=== PATIENT | female | born 1980 | race Two or more races ===

== ENCOUNTER 2016-11-30 18:39 | Emergency (ER) | payer OTHER ==
[~2016-11-30] VITALS: Ht 170.2 cm; Wt 54.4 kg
[~2016-11-30 18:39] MED LIST: ZOFRAN ODT4 MG ORAL
[2016-11-30] MEDS ORDERED: BUPROPION XL300 MG ORAL (18:57)
[2016-11-30] MEDS ORDERED: PROPRANOLOL HCL10 MG ORAL (18:57)
[2016-11-30] MEDS ORDERED: Ketorolac 60mg Inj IM ONE (19:15)
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
[2016-11-30 19:18] VITALS: BP 110/60
[2016-11-30] MEDS ORDERED: IBUPROFEN600 MG ORAL (20:04)
[2016-11-30] MEDS ORDERED: CYCLOBENZAPRINE10 MG ORAL (20:04)
[2016-11-30 20:23] VITALS: BP 120/62
== END 2016-11-30 20:23 | disposition home or self-care (01) ==
LOC: EMR 19:25
DX: M62.838 Other muscle spasm (principal); T14.8 Other injury of unspecified body region; V43.52XA Car driver injured in collision with other type car in traffic accident, initial encounter; Y92.410 Unspecified street and highway as the place of occurrence of the external cause; Y99.8 Other external cause status
CPT/HCPCS: 96372; 99283

== ENCOUNTER 2018-01-22 16:32 | Emergency (ER) | payer OTHER ==
[~2018-01-22] VITALS: Ht 170.2 cm; Wt 54.4 kg
[~2018-01-22 16:32] MED LIST changes: +BUPROPION XL300 MG ORAL; +CYCLOBENZAPRINE10 MG ORAL; +IBUPROFEN600 MG ORAL; +PROPRANOLOL HCL10 MG ORAL
[2018-01-22] MEDS ORDERED: DEPAKOTE250 MG PO (16:51)
[2018-01-22] MEDS ORDERED: BUPROPION XL300 MG ORAL (16:51)
[2018-01-22] MEDS ORDERED: PROPRANOLOL HCL10 MG ORAL (16:51)
[2018-01-22] MEDS ORDERED: Morphine Sulfate 4mg/ml Inj IVP ONE (17:15)
[2018-01-22] MEDS ORDERED: DiphenhydrAMINE 50mg/ml Inj IVP ONE (17:15)
[2018-01-22] MEDS ORDERED: Sodium Chloride 500ML 500 ML IV ONE (17:15)
[2018-01-22 17:58] VITALS: BP 119/62
--- NOTE | 2018-01-22 18:06 | Emergency Room Report ---
History of Present Illness General Chief Complaint: Vomiting Source: Patient Present Illness HPI 37-year-old female presents ED for evaluation. Patient states since this morning she's been experiencing congestion, cough, ear aches, bodyaches. Afebrile. Cough is dry. Patient also complaining of migraine. History of migraines. Sharp, 06/04, nonradiating. Denies photophobia. Denies neck pain. Denies any nausea or vomiting. No other aggravating relieving factors. Denies any other associated symptoms Allergies: Coded Allergies: No Known Allergies (Unverified , 09/09/16) Patient History Past Medical History: migraines Past Surgical History: none Pertinent Family History: none Social History: Denies: smoking, alcohol use, drug use Last Menstrual Period: 01/05/18 Now: No Immunizations: UTD Reviewed Nursing Documentation: PMH: Agreed, PSxH: Agreed Nursing Documentation-PMH Hx Neurological Problems: Yes - Migraine Physical Exam Vital Signs Date Time Temp Pulse Resp B/P (MAP) Pulse Ox O2 Delivery O2 Flow Rate FiO2 01/22/18 16:45 99.7 101 17 116/59 99 Room Air 99.7 Sp02 EP Interpretation: reviewed, normal General Appearance: no apparent distress, alert, GCS 15, non-toxic Head: normocephalic, atraumatic Eyes: bilateral eye normal inspection, bilateral eye PERRL ENT: hearing grossly normal, normal pharynx, no angioedema, normal voice Neck: full range of motion, supple, no meningismus, supple/symm/no masses Respiratory: chest non-tender, lungs clear, normal breath sounds, speaking full sentences Cardiovascular #1: regular rate, rhythm, no edema Cardiovascular #2: 2+ carotid (R), 2+ carotid (L), 2+ radial (R), 2+ radial (L) , 2+ dorsalis pedis (R), 2+ dorsalis pedis (L) Gastrointestinal: normal bowel sounds, non tender, soft, non-distended, no guarding, no rebound Rectal: deferred Genitourinary: normal inspection, no CVA tenderness Musculoskeletal: back normal, gait/station normal, normal range of motion, non- tender Neurologic: alert, oriented x3, responsive, motor strength/tone normal, sensory intact, speech normal Psychiatric: judgement/insight normal, memory normal, mood/affect normal, no suicidal/homicidal ideation Reflexes: 3+ bicep (R), 3+ bicep (L), 3+ tricep (R), 3+ tricep (L), 3+ knee (R) , 3+ knee (L) Skin: normal color, no rash, warm/dry, well hydrated Lymphatic: no adenopathy Medical Decision Making Diagnostic Impression: Primary Impression: Upper respiratory infection Qualified Codes: J06.9 - Acute upper respiratory infection, unspecified Additional Impression: Migraine Qualified Codes: G43.909 - Migraine, unspecified, not intractable, without status migrainosus ER Course Hospital Course 37-year-old female presents ED complaining of headache. History of migraine. Also complaining of runny nose, cough, congestion Differential diagnoses include: tension headache, migraine, URI, pharyngitis Clinical course Patient placed on stretcher. After initial history, physical exam reveals female in no acute distress. No nuchal rigidity. Good light reflex in bilateral TM. Pharynx unremarkable. Lungs clear Likely URI however triggering migraine I ordered IVFs, compazine, benedryl, morphine Upon reassessment patient states pain has improved. Patient feels better wishes to go home. Given the lack of fever, nuchal rigidity or neurological findings my suspicion for intracranial pathology is low patient be safely discharged to home. i. I feel this is a highly complex case requiring extensive working including EKG/Rhythm strip, Xray/CT/US, Blood/urine lab work, repeat exams while in ED, and administration of strong opiates/narcotics for pain control, admission to hospital or close patient follow up. Diagnosis - URI, migraine stable and discharged to home. f/up with PMD. return to ED if symptoms recur/ worsen. Last Vital Signs Date Time Temp Pulse Resp B/P (MAP) Pulse Ox O2 Delivery O2 Flow Rate FiO2 01/22/18 17:58 99.7 17 119/62 99 Room Air 211.5 01/22/18 16:45 101 Status: improved Disposition: HOME, SELF-CARE Condition: Stable Patient Instructions: Upper Respiratory Infection, Adult, [id number] DUSTIN HYDE M.D. Jan 22, 2018 18:06
== END 2018-01-22 18:00 | disposition home or self-care (01) ==
LOC: EMR 17:10
DX: J06.9 Acute upper respiratory infection, unspecified (principal); G43.909 Migraine, unspecified, not intractable, without status migrainosus
CPT/HCPCS: 96361; 96374; 96375; 99284; J0780; J1200; J2270; J7040

== ENCOUNTER 2018-09-03 16:09 | Emergency (ER) | payer OTHER ==
[~2018-09-03] VITALS: Ht 170.2 cm; Wt 52.2 kg
[~2018-09-03 16:09] MED LIST changes: +DEPAKOTE250 MG PO
[2018-09-03 16:41] VITALS: BP 106/60
[2018-09-03] MEDS ORDERED: Ketorolac 30mg Inj IM ONE (17:00)
[2018-09-03] MEDS ORDERED: DiphenhydrAMINE 25mg/10ml Elixir ORAL ONE (17:00)
[2018-09-03] MEDS ORDERED: Metoclopramide 10mg/2ml Inj IM ONE (17:00)
--- NOTE | 2018-09-03 17:06 | Emergency Room Report ---
History of Present Illness General Chief Complaint: Headache Source: Patient Present Illness HPI 38-year-old female patient presents ER complaining of migraine 1 day. Patient reports that headache began this morning with vomiting. Reports history of similar symptoms in the past, states that normal has migraines similar to this. Reports has been seen by a neurologist and been treated by her primary care provider. Reports mild second History this time. Denies recent injury or trauma. Reports photophobia. Denies vision loss. Denies phonophobia. Denies vertigo. Denies fever, chest pain, shortness of breath. Reports up to date on vaccinations. Denies blood in vomit.denies . Denies dysuria, hematuria. reports pain is more right-sided however reports sinus sinus pain during this time as well. Reports congestion and runny nose during this time. Denies cough. patient reports previously took Imitrex but would have palpitations after taking medication so she no longer takes medication. Allergies: Coded Allergies: No Known Allergies (Unverified , 09/09/16) Patient History Past Medical History: see triage record Last Menstrual Period: on period Reviewed Nursing Documentation: PMH: Agreed; PSxH: Agreed Nursing Documentation-PMH Past Medical History: No History, Except For History Of Psychiatric Problem: Yes - Depression Hx Neurological Problems: Yes - Migraine Review of Systems All Other Systems: negative except mentioned in HPI Physical Exam Vital Signs Date Time Temp Pulse Resp B/P (MAP) Pulse Ox O2 Delivery O2 Flow Rate FiO2 09/03/18 16:19 98.5 93 16 106/60 94 Room Air 98.4 Sp02 EP Interpretation: reviewed, normal General Appearance: well appearing, no apparent distress, alert, GCS 15, non- toxic Head: normocephalic, atraumatic, other - bilateral frontal and maxillary sinus tenderness Eyes: bilateral eye normal inspection, bilateral eye PERRL, bilateral eye EOMI ENT: hearing grossly normal, normal pharynx, no angioedema, normal voice, TMs + canals normal, uvula midline, moist mucus membranes Neck: full range of motion, no bony tend Respiratory: lungs clear, normal breath sounds, no rhonchi, no respiratory distress, no accessory muscle use, no wheezing, speaking full sentences Cardiovascular #1: regular rate, rhythm, no edema Gastrointestinal: non tender, soft, no mass, non-distended, no guarding, no rebound Musculoskeletal: back normal, digits/nails normal, gait/station normal, normal range of motion, non-tender Neurologic: alert, oriented x3, responsive, security vehicle patrol officer III-XII nml as tested, motor strength/tone normal, SLR negative, sensory intact, cerebellar normal, normal gait, speech normal, other - negative Kernig, negative Brudzinski Psychiatric: mood/affect normal Skin: no rash Lymphatic: no adenopathy Medical Decision Making PA Attestation Dr. Bryant is my supervising Physician whom patient management has been discussed with. Diagnostic Impression: Primary Impression: Migraine Additional Impression: Sinusitis ER Course Pt presents to ED c/o headache. DDX considered but are not limited to migraine, cluster MALDONADO, tension MALDONADO, meningitis, ICH, meningitis. negative Kernig, negative Brudzinski, patient afebrile, low suspicion for meningitis. VITAL SIGNS are WNL, patient is afebrile. ER COURSE: provided patient with Reglan,, Benadryl, Toradol and Zofran. History migraine, denies worse headache of life, nontoxic appearing, no vision loss, symptoms consistent with previous migraines, cranial nerves intact as tested, no focal neuro deficits. Offered CT head of patient, discussed with the patient need for CT head, patient declined. Advised to f/u outpatient with PCP and neurologist for further testing and treatment. Will provide patient with Excedrin Migraine and it discharge. Tenderness palpation over frontal and maxillary sinuses, likely sinusitis, could also be contributing to headache symptoms. will provide patient with Claritin for relief of symptoms. Followup with PCP and discuss further treatment and referral at that time. patient tolerated by mouth fluids while in the ER. Patient reports pain improved. Patient is AOx3, neurologically intact, nontoxic appearing, and ambulatory. DISCHARGE: -Rx provided Excedrin Migraine -RX provided for Claritin At this time pt is stable for d/c to home. Patient is resting comfortably, in no acute distress, nontoxic appearing, talking and smiling. Will provide with patient care instructions and any necessary prescriptions. Patient to take medication as instructed. Care plan and follow-up instructions provided. Patient questions asked and answered. Patient instructed to follow-up with primary care provider in the next 3 days and discuss further referral with PCP to neurologist. ER precautions given. Patient instructed to return to ER immediately for any new or worsening of symptoms including but not limited to fever, neck stiffness , vision changes, and neurological symptoms. - Please note that this Emergency Department Report was dictated using [employer] head start teacher technology software, occasionally this can lead to erroneous entry secondary to interpretation by the dictation equipment. Last Vital Signs Date Time Temp Pulse Resp B/P (MAP) Pulse Ox O2 Delivery O2 Flow Rate FiO2 09/03/18 16:41 98.4 16 106/60 94 Room Air 98.4 09/03/18 16:19 93 Status: improved Disposition: HOME, SELF-CARE Condition: Stable Scripts Loratadine/Pseudoephedrine (CLARITIN-D 24 HOUR TABLET) 1 Each Tab.er.24h 1 TAB PO DAILY, #30 TAB Prov: Ladarius Hernandez 09/03/18 Aspirin/Acetaminophen/Caffeine (EXCEDRIN MIGRAINE CAPLET) 1 Each Tablet 1 EACH PO BID, #30 TAB Prov: Ladarius Hernandez 09/03/18 Patient Instructions: Migraine Headache, Sinus Headache, Sinusitis, Adult, Easy -to-Read Additional Instructions: Followup with primary care provider in 3 -5 days. Take medications as directed. Patient questions asked and answered. ER precautions given, patient instructed to return to ER immediately for any new or worsening of symptoms. Ladarius Hernandez Sep 03, 2018 17:06
[2018-09-03] MEDS ORDERED: CLARITIN-D 241 EACH PO (17:49)
[2018-09-03] MEDS ORDERED: EXCEDRIN MIGRA1 EAC1 PO (17:49)
[2018-09-03 18:00] VITALS: BP 106/60
== END 2018-09-03 18:00 | disposition home or self-care (01) ==
LOC: EMR 16:52
DX: G43.809 Other migraine, not intractable, without status migrainosus (principal); J32.9 Chronic sinusitis, unspecified
CPT/HCPCS: 96372; 99283; J1885; J2765

== ENCOUNTER 2019-08-27 07:55 | Emergency (ER) | payer OTHER ==
[~2019-08-27] VITALS: Ht 170.2 cm; Wt 56.7 kg
[~2019-08-27 07:55] MED LIST changes: +CEPHALEXIN500 MG ORAL; +CLARITIN-D 241 EACH PO; +EXCEDRIN MIGRA1 EAC1 PO
[2019-08-27] MEDS ORDERED: CLARITIN-D 241 EACH PO (08:02)
[2019-08-27 08:08] VITALS: BP 114/81
--- NOTE | 2019-08-27 08:11 | NUR ---
ED Nurse Note: pt from home walked in c/o migraine for 1 day and vomiting. pt awaiting ermd eval .
[2019-08-27] MEDS ORDERED: Metoclopramide 10mg/2ml Inj IVP ONE (08:15)
[2019-08-27] MEDS ORDERED: Ketorolac 30mg Inj IV ONE (08:15)
[2019-08-27] MEDS ORDERED: DiphenhydrAMINE 50mg/ml Inj IVP ONE (08:15)
--- NOTE | 2019-08-27 08:19 | Emergency Room Report ---
History of Present Illness General Chief Complaint: Headache Source: Patient, Medical Record Present Illness HPI Patient is a 39-year-old female presents after increased generalized headache. Patient reports having gradual onset of symptoms. She reports having prior history of migraines. She states this is similar to her prior headaches. She had gradual worsening throbbing of her head. She reports having some mild blurring of her vision. She denies any diarrhea but reports having multiple episodes of nonbloody emesis. She states this is the usual way her migraine presents. She denies any weakness to her extremities. She reports having previous negative MRI. Allergies: Coded Allergies: No Known Allergies (Unverified , 09/09/16) Patient History Past Medical History: migraines Last Menstrual Period: 08/25/19 Reviewed Nursing Documentation: PMH: Agreed; PSxH: Agreed Nursing Documentation-PM Past Medical History: No History, Except For Hx Neurological Problems: Yes - Migraine Review of Systems All Other Systems: negative except mentioned in HPI Physical Exam Vital Signs Date Time Temp Pulse Resp B/P (MAP) Pulse Ox O2 Delivery O2 Flow Rate FiO2 08/27/19 07:59 98.2 83 16 114/81 (92) 100 Room Air Sp02 EP Interpretation: reviewed, normal General Appearance: normal inspection, well appearing, no apparent distress, alert, GCS 15 Head: atraumatic ENT: normal ENT inspection, hearing grossly normal, normal voice Neck: normal inspection, full range of motion, supple, no bony tend Respiratory: normal inspection, lungs clear, normal breath sounds, no respiratory distress, no retraction, no wheezing Cardiovascular #1: regular rate, rhythm, no edema Gastrointestinal: normal inspection, normal bowel sounds, non tender, soft, no guarding, no hernia Genitourinary: no CVA tenderness Musculoskeletal: normal inspection, back normal, normal range of motion Neurologic: normal inspection, alert, oriented x3, responsive, fish conservationist III-XII nml as tested, speech normal Psychiatric: normal inspection, judgement/insight normal, mood/affect normal Medical Decision Making Diagnostic Impression: Primary Impression: Migraine ER Course Patient presented for gradual onset of the headache. Differential diagnoses included but was not limited to skull fracture, subarachnoid hemorrhage, meningitis, aneurysm, mass lesion, intracranial hemorrhage. Patient has a benign exam and does not appear to require any imaging or laboratory testing at this time. Patient was noted to have prior history of similar headaches. Patient will be given medications for symptomatic treatment. She does not appear to have any symptoms consistent with subarachnoid hemorrhage or meningitis. She has no meningismus on exam.Patient appears to be stable for close outpatient follow-up with her primary care physician. Patient's hematuria appears to be related to her current menses. Patient advised to return if worse. Patient advised to follow-up with her primary care physician in 1 to 2 days for recheck. Labs Test 08/27/19 08:17 Urine Color Pale yellow Urine Appearance Clear Urine pH 7 (4.5-8.0) Urine Specific [place] 1.010 (1.005-1.035) Urine Protein Negative (NEGATIVE) Urine Glucose (UA) Negative (NEGATIVE) Urine Ketones 1+ (NEGATIVE) Urine Blood 5+ (NEGATIVE) Urine Nitrite Negative (NEGATIVE) Urine Bilirubin Negative (NEGATIVE) Urine Urobilinogen Normal MG/DL (0.0-1.0) Urine Leukocyte Esterase Negative (NEGATIVE) Urine RBC 5-10 /HPF (0 - 2) Urine WBC 0 /HPF (0 - 2) Urine Squamous Epithelial Cells Many /LPF (NONE/OCC) Urine Bacteria Occasional /HPF (NONE) Urine HCG, Qualitative Negative (NEGATIVE) Last Vital Signs Date Time Temp Pulse Resp B/P (MAP) Pulse Ox O2 Delivery O2 Flow Rate FiO2 08/27/19 08:08 98.2 16 114/81 100 Room Air 08/27/19 07:59 83 Status: improved Disposition: HOME, SELF-CARE Condition: Stable Scripts Ondansetron Odt* (ZOFRAN ODT*) 4 Mg Tab.rapdis 4 MG BC EVERY 6 HOURS PRN for Nausea & Vomiting, #10 TAB 0 Refills Prov: Mike Cook MD 08/27/19 Referrals: NON PHYSICIAN (PCP) Mike Cook MD Aug 27, 2019 08:19
--- NOTE | 2019-08-27 08:34 | NUR ---
ED Nurse Note: irene jaramillo done urine sent to lab at 0817 iv established ivf up infusing pt medicated will monitor.
[2019-08-27 08:45] LABS: APPEARANCE,URINE CLEAR; BILIRUBIN, URINE NEGATIVE (NEGATIVE); COLOR,URINE PALE YELLOW; GLUCOSE, URINE (UA) NEGATIVE (NEGATIVE); KETONES,URINE 1+ (NEGATIVE); LEUKOCYTE ESTERASE ,URINE NEGATIVE (NEGATIVE); NITRITE,URINE NEGATIVE (NEGATIVE); PH,URINE 7 (4.5-8.0); PROTEIN,URINE NEGATIVE (NEGATIVE); UROBILINOGEN,URINE NORMAL MG/DL (0.0-1.0)
[2019-08-27] MEDS ORDERED: ONDANSETRON ODT4 MG BC (08:59)
[2019-08-27 09:04] VITALS: BP 114/81
--- NOTE | 2019-08-27 09:06 | NUR ---
ER DISCHARGE NOTE: Patient is cleared to be discharged per ERMD, pt is aox4, on room air, with stable vital signs. pt was given dc and prescription instructions, pt was able to verbalize understanding, pt id band and iv site removed without complications. pt is able to ambulate with steady gait. pt took all belongings.
== END 2019-08-27 09:11 | disposition home or self-care (01) ==
LOC: EMR 08:16
DX: G43.909 Migraine, unspecified, not intractable, without status migrainosus (principal)
CPT/HCPCS: 81003; 81025; 96374; 96375; J1200; J1885; J2765; J7040; Z7502; 99284

== ENCOUNTER 2019-10-21 15:04 | Emergency (ER) | payer OTHER ==
[~2019-10-21] VITALS: Ht 170.2 cm; Wt 54.4 kg
[~2019-10-21 15:04] MED LIST changes: +ONDANSETRON ODT4 MG BC
--- NOTE | 2019-10-21 15:21 | NUR ---
ED Nurse Note: Pt walked into ED from home c/o vaginal redness since yesterday. Pt started menstrual cycle yday. Pt is concerned might have cyst. VSS. No acute distress.
[2019-10-21 15:22] VITALS: BP 115/87
[2019-10-21 15:44] LABS: APPEARANCE,URINE CLEAR; BILIRUBIN, URINE NEGATIVE (NEGATIVE); COLOR,URINE PALE YELLOW; GLUCOSE, URINE (UA) NEGATIVE (NEGATIVE); KETONES,URINE NEGATIVE (NEGATIVE); LEUKOCYTE ESTERASE ,URINE NEGATIVE (NEGATIVE); NITRITE,URINE NEGATIVE (NEGATIVE); PH,URINE 8 (4.5-8.0); PROTEIN,URINE NEGATIVE (NEGATIVE); UROBILINOGEN,URINE NORMAL MG/DL (0.0-1.0)
[2019-10-21] MEDS ORDERED: Omnipaque-300 100ml vial INJ PRN (15:45)
[2019-10-21 16:26] LABS: ANION GAP 9 mmol/L (5-15); BLOOD UREA NITROGEN 15 mg/dL (7-18); CALCIUM 8.9 MG/DL (8.5-10.1); CARBON DIOXIDE 27 MMOL/L (21-32); CHLORIDE 106 MMOL/L (98-107); POTASSIUM 3.8 MMOL/L (3.5-5.1); SODIUM 142 MMOL/L (136-145)
[2019-10-21 16:33] LABS: BASOPHILS % (AUTO) 1.6 % (0.0-2.0); HEMATOCRIT 42.5 % (37.0-47.0); LYMPHOCYTES % (AUTO) 25.5 % (20.0-45.0); MEAN CORPUSCULAR VOLUME 85 FL (80-99); MONOCYTES % (AUTO) 8.4 % (1.0-10.0); NEUTROPHILS % (AUTO) 61.6 % (45.0-75.0); PLATELET COUNT 281 K/UL (150-450); RED BLOOD COUNT 5.01 M/UL (4.20-5.40); RED CELL DISTRIBUTION WIDTH 12.8 % (11.6-14.8); WHITE BLOOD COUNT 6.6 K/UL (4.8-10.8)
--- NOTE | 2019-10-21 16:34 | NUR ---
ED Nurse Note: pt taken to CT scan in stable condition.
[2019-10-21 16:39] LABS: ALANINE AMINOTRANSFERASE 22 U/L (12-78); ALBUMIN 4.2 G/DL (3.4-5.0); ALBUMIN/GLOBULIN RATIO 1.2 (1.0-2.7); ALKALINE PHOSPHATASE 52 U/L (46-116); ASPARTATE AMINO TRANSFERASE 16 U/L (15-37); BILIRUBIN,TOTAL 0.3 MG/DL (0.2-1.0)
--- NOTE | 2019-10-21 16:46 | NUR ---
ED Nurse Note: pt came back from CT in stable condition.
--- NOTE | 2019-10-21 18:00 | Diagnostic Imaging Report ---
Indication: Discomfort swallowing food for 2 weeks Technique: IV administration nonionic contrast. Spiral acquisitions obtained through the neck. Multiplanar reconstructions were generated. Total dose length product 340 mGycm. CTDIvol(s) 3, 35, 11 mGy. Dose reduction achieved using automated exposure control Comparison: none Findings: Unusual midline fluid collection projects inferior to the hyoid bone and anterior to the upper laryngeal cartilage, measures 3.6 cm transverse by 2 cm AP by 2.6 cm craniocaudad. There is minimal if any inflammation of the surrounding structures. There is very slight asymmetric prominence of the right tonsillar pillar. This is subtle, quite likely physiologic. Otherwise unremarkable inferior nasopharynx, oropharynx, hypopharynx, and larynx. No prevertebral soft not frankly enlarged tissue swelling. The parapharyngeal spaces are clear, symmetric. Prominent jugulodigastric nodes on the right measure up to 2 cm long axis dimension. No cervical mass or adenopathy. The salivary glands are unremarkable. No supraclavicular mass or adenopathy. The bones are unremarkable except for mild degenerative spondylosis changes of the cervical spine. There is a polyp versus mucous retention cyst in the floor of the right maxillary sinus. There is minimal mucosal thickening of the maxillary sinuses bilaterally Impression: Unilocular cystic mass, as described. 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 No specific features to suggest infection, although this should be assessed clinically. Polyp versus mucous retention cyst in the floor of the right maxillary sinus This agrees with the preliminary interpretation provided overnight by [facility]. The CT scanner at [facility] is accredited by the [employer] and the scans are performed using protocols designed to limit radiation exposure to as low as reasonably achievable to attain images of sufficient resolution adequate for diagnostic evaluation.
[2019-10-21] MEDS ORDERED: CEPHALEXIN500 MG ORAL (18:12)
--- NOTE | 2019-10-21 18:12 | Emergency Room Report ---
History of Present Illness General Chief Complaint: Vaginal Source: Patient Present Illness HPI 39-year-old female with no symptom past medical history painful vaginal lesion that she noticed 2 days ago. Patient denies being sexually active, denies vaginal discharge, urinary frequency and urgency. Reports that few days ago she shaved the vaginal area and started noticing bleeding lesion right after. Also complains of an enlargement of a mass on the left side of her neck which appears to be very close to her thyroid gland. Denies weight loss, weight gain , fatigue, diaphoresis, or feeling cold. Denies history of thyroid abnormality. Does report that she has a history of lymphoma in her family. Denies chest pain, shortness of breath, palpitation, night sweats, and all other associated symptoms. Allergies: Coded Allergies: No Known Allergies (Unverified , 09/09/16) Patient History Past Medical History: see triage record Past Surgical History: unable to obtain Pertinent Family History: none Last Menstrual Period: 10/20/19 Now: No Immunizations: UTD Reviewed Nursing Documentation: PMH: Agreed; PSxH: Agreed Nursing Documentation-PMH Past Medical History: No Stated History Hx Neurological Problems: Yes - Migraine Review of Systems All Other Systems: negative except mentioned in HPI Physical Exam Vital Signs Date Time Temp Pulse Resp B/P (MAP) Pulse Ox O2 Delivery O2 Flow Rate FiO2 10/21/19 15:09 98.1 93 18 119/84 (96) 99 Room Air Sp02 EP Interpretation: reviewed, normal General Appearance: no apparent distress, alert, GCS 15, non-toxic Head: normocephalic, atraumatic Eyes: bilateral eye normal inspection, bilateral eye PERRL ENT: hearing grossly normal, normal pharynx, no angioedema, normal voice Neck: full range of motion, supple, thyroid normal, no meningismus, no bony tend, no carotid bruits, supple/symm/no masses Respiratory: chest non-tender, lungs clear, normal breath sounds, no rhonchi, no respiratory distress, no retraction, no accessory muscle use, no wheezing, speaking full sentences Cardiovascular #1: regular rate, rhythm, no edema, no murmur Cardiovascular #2: 2+ carotid (R), 2+ carotid (L) Gastrointestinal: normal bowel sounds, non tender, soft, non-distended, no guarding, no rebound Genitourinary: no CVA tenderness, other - Folliculitis left vulva Musculoskeletal: back normal, normal range of motion, no calf tenderness, gait/ station normal, non-tender Neurologic: alert, motor strength/tone normal, oriented x3, sensory intact, responsive, speech normal Psychiatric: judgement/insight normal, memory normal, mood/affect normal, no suicidal/homicidal ideation Skin: no rash Lymphatic: no adenopathy Medical Decision Making PA Attestation Diagnosis and treatment plans were reviewed and discussed with my supervising physician Dr. Albarran Diagnostic Impression: Primary Impression: Thyroglossal cyst Additional Impression: Folliculitis ER Course 39-year-old female with no symptom past medical history painful vaginal lesion that she noticed 2 days ago. Patient denies being sexually active, denies vaginal discharge, urinary frequency and urgency. Reports that few days ago she shaved the vaginal area and started noticing bleeding lesion right after. Also complains of an enlargement of a mass on the left side of her neck which appears to be very close to her thyroid gland. Denies weight loss, weight gain , fatigue, diaphoresis, or feeling cold. Denies history of thyroid abnormality. Does report that she has a history of lymphoma in her family. Denies chest pain, shortness of breath, palpitation, night sweats, and all other associated symptoms. Ddx considered but are not limited to : Cellulitis, folliculitis, herpes,, superficial infection, abscess, lymphoma, thyroglossal cyst, thyroid abnormality Vital signs: are WNL, pt. is afebrile H&PE are most consistent with: Thyroglossal cyst, folliculitis of the vaginal ORDERS: CBC, CMP, UA, urine test, CT scan of neck with contrast soft tissue, Keflex ED INTERVENTIONS: None required at this time. DISCHARGE: At this time pt. is stable for d/c to home. Will provide printed patient care instructions, and any necessary prescriptions. Care plan and follow up instructions have been discussed with the patient prior to discharge. 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 If worsening symptoms return to the emergency room CT/MRI/US Diagnostic Results CT/MRI/US Diagnostic Results : Imaging Test Ordered: CT scan soft tissue neck with contrast Impression CT NECK With Contrast: Hypodense structure in the upper anterior midline neck/base of the tongue, measuring approximately 1.6 x 3.0 x 3.0 cm. Findings may represent a thyroglossal duct cyst. Mild mucosal thickening in the maxillary sinuses. Polyp versus mucous retention cyst in the right maxillary sinus. Last Vital Signs Date Time Temp Pulse Resp B/P (MAP) Pulse Ox O2 Delivery O2 Flow Rate FiO2 10/21/19 15:22 98.0 70 18 115/87 99 Room Air Disposition: HOME, SELF-CARE Condition: Stable Scripts Cephalexin* (KEFLEX*) 500 Mg Capsule 500 MG ORAL EVERY 6 HOURS for 7 Days, #28 CAP Prov: Earl Venegas 10/21/19 Referrals: NON PHYSICIAN (PCP) Patient Instructions: Folliculitis, Thyroglossal Cyst Removal Additional Instructions: Follow-up with your primary care physician for referral to specialist, if worsening symptoms return to the emergency room Earl Venegas Oct 21, 2019 18:12
[2019-10-21 18:42] VITALS: BP 123/65
== END 2019-10-21 18:43 | disposition home or self-care (01) ==
LOC: EMR 15:27
DX: Q89.2 Congenital malformations of other endocrine glands (principal); L73.9 Follicular disorder, unspecified; G43.909 Migraine, unspecified, not intractable, without status migrainosus
CPT/HCPCS: 36415; 70491; 80053; 81003; 81025; 84439; 84443; 85025; Q9967; Z7502; 99284